=== PATIENT | female | born 1995 | race Caucasian/White ===

== ENCOUNTER 2018-10-16 21:25 | Emergency (ER) | payer SELFPAY ==
[~2018-10-16] VITALS: Ht 162.6 cm; Wt 64.6 kg
[~2018-10-16 21:25] MED LIST: CYCL10TA7 PO; NAPR-985 PO
[2018-10-16 21:29] VITALS: BP 114/57; PULSE 70; RESP 18; Ht 162.6 cm; Wt 64.6 kg
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
== END 2018-10-16 22:35 | disposition home or self-care (01) ==
LOC: FTE 21:25
DX: T22.112A Burn of first degree of left forearm, initial encounter (principal); T22.111A Burn of first degree of right forearm, initial encounter; V49.40XA Driver injured in collision with unspecified motor vehicles in traffic accident, initial encounter; X19.XXXA Contact with other heat and hot substances, initial encounter
CPT/HCPCS: 99283